=== PATIENT | male | born 1935 | race Caucasian/White ===

== ENCOUNTER 2017-06-28 10:22 | Outpatient (CLI) | payer MEDICARE, OTHER ==
--- NOTE | 2017-06-28 13:32 | CT ---
LOW DOSE CT PULMONARY LUNG SCAN: 06/28/2017 HISTORY: Lung cancer screening. Nicotine dependent. Cigarettes. Uncomplicated. The patient smoked at least a pack a day for 50 years. COMPARISON: None available. FINDINGS: There are two ill defined patchy densities seen within the right lower lobe, which measure less than 1 cm. there is no discrete solid pulmonary nodule or mass identified. There is no pleural effusion seen. Mild emphysematous changes are seen in the upper lobes, greater on the right. There is linear scarri ng versus atelectasis present at the left lung base. Vascular calcifications are seen in the coronary arteries, as well as involving the thoracic and visu alized upper abdominal aorta. There is limited evaluation of the mediastinal structures due to lack of intravenous contrast, but no enlarged lymph nodes are seen. Post cholecystectomy changes are seen in the visualized upper abdomen. Degenerative changes are noted in the spine. IMPRESSION: 1. Lung-RADS category 3, probably benign findings, with patchy and slight subtle ground glass densit y seen within the right lower lobe. Findings could be related to an infectious or inflammatory proce ss. A six-month follow-up low-dose CT scan thorax is recommended. 2. Lung-RADS category S--Mild emphysematous changes within the upper lobes, with linear scarring kang jeremiah atelectasis at the left lung base. 3. Lung-RADS category S-Prominent atherosclerotic vascular calcifications in the coronary arteries, as well as involving the thoracic and visualized upper abdominal aorta. POS: [facility]
== END 2017-06-28 10:23 | disposition home or self-care (01) ==
LOC: CT 10:22
PROVIDERS: ATTEND Family Medicine
DX: F17.210 Nicotine dependence, cigarettes, uncomplicated (principal); J98.4 Other disorders of lung; I25.10 Atherosclerotic heart disease of native coronary artery without angina pectoris; G95.19 Other vascular myelopathies; I70.0 Atherosclerosis of aorta
CPT/HCPCS: G0297

== ENCOUNTER 2018-05-20 12:33 | Emergency (ER) | payer MEDICARE, OTHER ==
[2018-05-20] MEDS ORDERED: Morphine 4 MG/ML Carpuject ONE (12:50)
--- NOTE | 2018-05-20 13:15 | RAD ---
2 VIEWS CHEST: Date: 05/20/18 COMPARISON: None. HISTORY: Fall with left posterior rib pain. FINDINGS: Two views of the chest show normal sized cardiomediastinal silhouette. There is no evidence of consol idation, mass, or pleural effusion. There are multiple abnormally shaped left lateral ribs, but these appear to be remote rib fractures rather than an acute fracture. No pneumothorax is seen. Degenerati ve changes are seen in the spine. Postsurgical changes are seen in both shoulders. IMPRESSION: No evidence of acute cardiopulmonary disease. POS: [facility]
== END 2018-05-20 13:25 | disposition home or self-care (01) ==
LOC: SCSER 12:33
DX: S20.222A Contusion of left back wall of thorax, initial encounter (principal); F17.210 Nicotine dependence, cigarettes, uncomplicated; I10 Essential (primary) hypertension; W01.198A Fall on same level from slipping, tripping and stumbling with subsequent striking against other object, initial encounter
CPT/HCPCS: 71046; 96372; J2270

== ENCOUNTER 2018-06-08 15:46 | Outpatient (CLI) | payer MEDICARE, OTHER ==
--- NOTE | 2018-06-08 17:07 | RAD ---
LEFT RIBS GREATER THAN OR EQUAL TO TWO VIEWS STANDARD 06/08/18 HISTORY: R07.81 - rib pain. Fall. COMPARISON: Chest radiograph 05/20/18. FINDINGS: Multiple remote left sided rib fractures. No pneumothorax. No effusion. No new acute superimposed rib fracture. IMPRESSION: Remote old left sided rib fractures. POS: [facility]
== END 2018-06-08 15:47 | disposition home or self-care (01) ==
LOC: SCSRAD 15:46
PROVIDERS: ATTEND Family Medicine
DX: R07.81 Pleurodynia (principal)

== ENCOUNTER 2021-10-01 08:02 | Outpatient (CLI) | payer MEDICARE, OTHER | END 2021-10-01 08:03 | disposition home or self-care (01) | LOC: NM 08:02 | PROVIDERS: ATTEND Family Medicine | DX: R74.8 Abnormal levels of other serum enzymes (principal) | CPT/HCPCS: 78306; A9503 ==

== ENCOUNTER 2021-10-20 08:30 | Day surgery (SDC) | payer MEDICARE, OTHER ==
[2021-10-20] MEDS ORDERED: Lidocaine 1% MPF 2 ML VIAL ONE (09:06)
[2021-10-20] MEDS ORDERED: Levofloxacin 500 mg/D5W 100 ml Premix Bag ONE (09:56)
[2021-10-20] MEDS ORDERED: Iopamidol 30 ML ONE (09:58)
[2021-10-20] MEDS ORDERED: Indomethacin 50 MG SUPP ONE (09:58)
[2021-10-20] MEDS ORDERED: Fentanyl 100 MCG/2 ML VIAL ONE (10:09)
[2021-10-20] MEDS ORDERED: Rocuronium Bromide 10 MG/ML (10ML VIAL) ONE (10:21)
[2021-10-20] MEDS ORDERED: Ondansetron PF 4 MG/2 ML Vial ONE (10:21)
[2021-10-20] MEDS ORDERED: Dexamethasone 20 MG/5 ML VIAL ONE (10:21)
[2021-10-20] MEDS ORDERED: PROPOFOL 200 MG/20 ML VIAL ONE (10:21)
[2021-10-20] MEDS ORDERED: Lidocaine 1% PF 5 ML VIAL ONE (10:21)
[2021-10-20] MEDS ORDERED: Glycopyrrolate 0.2 MG/ML 5 ML SYRINGE ONE (10:21)
== END 2021-10-20 14:38 | disposition home or self-care (01) ==
LOC: SDC 08:30
PROVIDERS: ATTEND Internal Medicine Gastroenterology
PROC: 0FC98ZZ Extirpation of Matter from Common Bile Duct, Via Natural or Artificial Opening Endoscopic (ICD-10-PCS; principal; 2021-10-20)
PROC: 0F798ZZ Dilation of Common Bile Duct, Via Natural or Artificial Opening Endoscopic (ICD-10-PCS; 2021-10-20)
DX: K80.50 Calculus of bile duct without cholangitis or cholecystitis without obstruction (principal); K57.10 Diverticulosis of small intestine without perforation or abscess without bleeding; F17.210 Nicotine dependence, cigarettes, uncomplicated; Z79.899 Other long term (current) drug therapy; Z20.822 Contact with and (suspected) exposure to COVID-19
CPT/HCPCS: 74330; 87811; J1100; J1956; J2405; J2704; J2710; J3010; Q9967

== ENCOUNTER 2021-12-27 23:21 | Inpatient (IN) | payer MEDICARE, OTHER ==
[2021-12-27] MEDS ORDERED: Morphine 4 MG/ML VIAL ONE (23:36)
[2021-12-28] MEDS ORDERED: Lorazepam 1 MG TAB PO PRN
[2021-12-28 00:11] LABS: #Eosinphils 0.1 thou/uL (0.0-0.7); #Lymphocytes 1.5 thou/uL (1.20-3.40); #Monocytes 0.7 thou/uL (0.11-0.59); #Neutrophils 7.3 thou/uL (1.40-6.50); %Basophils 0.1 % (0.0-1.0); %Eosinophils 0.6 % (0.0-10.0); %Lymphocytes 16.1 % (21.0-51.0); %Monocytes 7.4 % (0.0-10.0); %Neutrophils 75.9 % (42.0-75.0); Hemoglobin 12.5 g/dL (14.0-18.0); Mean Corpuscular HGB CONC 32.4 g/dL (32.0-36.0); Mean Corpuscular Hemoglobin 30.5 pg (27.0-31.0); Mean Corpuscular Volume 93.9 fL (78.0-98.0); Mean Platelet Volume 8.5 fL (7.4-10.4); Platelet Count 149 thou/uL (130-400); RBC Distribution Width 13.7 % (11.5-14.5); Red Blood Cell (RBC) Count 4.11 mill/uL (4.70-6.10); White Blood Cell (WBC) Count 9.6 thou/uL (4.8-10.8)
[2021-12-28 00:20] LABS: ALT (SGPT) 18 U/L (8-55); AST (SGOT) 18 U/L (5-34); Albumin 3.6 g/dL (3.4-4.8); Alkaline Phosphatase 165 U/L (40-110); Anion Gap 14 mmol/L (10-20); BUN (Urea Nitrogen) 17 mg/dL (8.4-25.7); Bilirubin, Total 0.4 mg/dL (0.2-1.2); Calc. Creatinine Clearance 0 mL/min (70-130); Carbon Dioxide 22 mmol/L (23-31); Chloride 109 mmol/L (98-107); Estimated GFR 82; Globulin 2.4 g/dL (2.4-3.5); Glucose 101 mg/dL (83-110); Potassium 3.6 mmol/L (3.5-5.1); Sodium 141 mmol/L (136-145)
[2021-12-28] MEDS ORDERED: Ondansetron PF 4 MG/2 ML Vial IVP PRN (01:50)
[2021-12-28] MEDS ORDERED: Acetaminophen 325 MG TAB PO PRN (01:50)
[2021-12-28] MEDS ORDERED: Ondansetron ODT 4 MG TAB PO PRN ×2 (01:50→03:45)
[2021-12-28] MEDS ORDERED: Acetaminophen 650 MG Suppository PR PRN (01:50)
[2021-12-28 02:52] VITALS: BMI 25.4
[2021-12-28] MEDS: Morphine 4 MG/ML VIAL SLOW IVP PRN ×2 (03:40→14:33)
[2021-12-28] MEDS ORDERED: Thiamine HCl 200 MG/2 ML VIAL SLOW IVP SCH (03:45)
[2021-12-28] MEDS ORDERED: Lorazepam 2 MG/ML VIAL IM PRN (03:45)
[2021-12-28] MEDS ORDERED: Electrolyte Replacement Protocol 1 EACH FS PRN (03:45)
[2021-12-28] MEDS: Enoxaparin Sodium 80 MG/0.8 ML SYRINGE SC SCH ×2 (03:55→18:02)
[2021-12-28 05:16] LABS: #Lymphocytes 1.3 thou/uL (1.20-3.40); #Monocytes 0.6 thou/uL (0.11-0.59); %Basophils 0.3 % (0.0-1.0); %Eosinophils 0.7 % (0.0-10.0); %Lymphocytes 18.9 % (21.0-51.0); %Monocytes 8.9 % (0.0-10.0); %Neutrophils 71.2 % (42.0-75.0); Hemoglobin 12.3 g/dL (14.0-18.0); Mean Corpuscular Hemoglobin 30.7 pg (27.0-31.0); Mean Platelet Volume 8.3 fL (7.4-10.4); Platelet Count 138 thou/uL (130-400); RBC Distribution Width 13.7 % (11.5-14.5); Red Blood Cell (RBC) Count 3.99 mill/uL (4.70-6.10); White Blood Cell (WBC) Count 7.1 thou/uL (4.8-10.8)
[2021-12-28 05:36] LABS: Anion Gap 11 mmol/L (10-20); BUN (Urea Nitrogen) 14 mg/dL (8.4-25.7); Calc. Creatinine Clearance 70 mL/min (70-130); Calcium 8.1 mg/dL (7.8-10.44); Carbon Dioxide 23 mmol/L (23-31); Chloride 109 mmol/L (98-107); Estimated GFR 87; Glucose 112 mg/dL (83-110); Potassium 3.7 mmol/L (3.5-5.1); Sodium 139 mmol/L (136-145)
[2021-12-28] MEDS ORDERED: Lorazepam 1 MG TAB PO SCH (06:00)
[2021-12-28] MEDS ORDERED: Enoxaparin Sodium 40 MG/0.4 ML SYRINGE SC SCH (09:00)
[2021-12-28] MEDS ORDERED: Multivit, Therapeutic 1 TAB PO SCH (09:00)
[2021-12-28] MEDS ORDERED: Folic Acid 1 MG TAB PO SCH (09:00)
[2021-12-28] MEDS ORDERED: Magnesium 2 GM/50 ML(in water) 2 GM in Premix Bag 1 BAG IVPB SCH (09:00)
[2021-12-28] MEDS: Multivitamins, Adult 10 ML, Folic Acid 1 MG, Thiamine HCl 100 MG in Dextrose 5 %-0.45 %... IV SCH (09:22)
[2021-12-28] MEDS: Finasteride 5 MG TAB PO SCH (09:25)
[2021-12-28] MEDS: Amlodipine 5 MG TAB PO SCH (09:25)
[2021-12-28] MEDS: Dronedarone HCl 400 MG TAB PO SCH (18:02)
[2021-12-28] MEDS ORDERED: Aspirin 81 mg Enteric Coated Tablet PO SCH (21:00)
[2021-12-29] MEDS ORDERED: Lorazepam 1 MG TAB PO PRN (03:45)
[2021-12-29] MEDS: HYDROcodone/Acetaminophen 5/325 mg Tablet PO PRN ×2 (05:26→17:13)
[2021-12-29] MEDS: Lorazepam 1 MG TAB PO SCH ×4 (05:27→23:31)
[2021-12-29 07:17] LABS: Anion Gap 11 mmol/L (10-20); BUN (Urea Nitrogen) 16 mg/dL (8.4-25.7); Calc. Creatinine Clearance 62 mL/min (70-130); Calcium 8.1 mg/dL (7.8-10.44); Carbon Dioxide 22 mmol/L (23-31); Chloride 107 mmol/L (98-107); Estimated GFR 84; Glucose 135 mg/dL (83-110); Magnesium 2.1 mg/dL (1.6-2.6); Potassium 3.7 mmol/L (3.5-5.1); Sodium 136 mmol/L (136-145)
[2021-12-29 07:24] LABS: #Monocytes 0.9 thou/uL (0.11-0.59); #Neutrophils 6.4 thou/uL (1.40-6.50); %Basophils 0.1 % (0.0-1.0); %Eosinophils 0.3 % (0.0-10.0); %Lymphocytes 12.1 % (21.0-51.0); %Monocytes 10.6 % (0.0-10.0); %Neutrophils 76.9 % (42.0-75.0); Hemoglobin 12.3 g/dL (14.0-18.0); Large Platelets SLIGHT; MDiff Complete? YES; Mean Corpuscular HGB CONC 33.8 g/dL (32.0-36.0); Mean Corpuscular Hemoglobin 31.4 pg (27.0-31.0); Mean Corpuscular Volume 92.8 fL (78.0-98.0); Mean Platelet Volume 8.1 fL (7.4-10.4); Platelet Count 118 thou/uL (130-400); Platelet Morphology Comment Appears Decreased; RBC Distribution Width 13.6 % (11.5-14.5); RBC Morphology Normal; Red Blood Cell (RBC) Count 3.93 mill/uL (4.70-6.10); White Blood Cell (WBC) Count 8.3 thou/uL (4.8-10.8)
[2021-12-29] MEDS: Dronedarone HCl 400 MG TAB PO SCH ×2 (09:49→17:13)
[2021-12-29] MEDS: Enoxaparin Sodium 80 MG/0.8 ML SYRINGE SC SCH ×2 (09:49→20:10)
[2021-12-29] MEDS: Finasteride 5 MG TAB PO SCH (09:49)
[2021-12-29] MEDS: Amlodipine 5 MG TAB PO SCH (09:49)
[2021-12-29] MEDS: Multivitamins, Adult 10 ML, Folic Acid 1 MG, Thiamine HCl 100 MG in Dextrose 5 %-0.45 %... IV SCH (09:50)
[2021-12-29] MEDS ORDERED: Aspirin 81 mg Enteric Coated Tablet PO SCH (10:09)
[2021-12-29] MEDS: GLUCOSAMINE CHONDROITIN MSM PO SCH (13:59)
[2021-12-29] MEDS ORDERED: Dronedarone HCl 400 MG TAB PO SCH (17:00)
[2021-12-29] MEDS ORDERED: Aspirin 325 mg Enteric Coated Tablet PO SCH (21:00)
[2021-12-30] MEDS ORDERED: Lorazepam 1 MG TAB PO PRN (03:45)
[2021-12-30] MEDS: Lorazepam 0.5 MG TAB PO SCH ×2 (05:24→13:53)
[2021-12-30] MEDS: Dronedarone HCl 400 MG TAB PO SCH (08:36)
[2021-12-30] MEDS: Finasteride 5 MG TAB PO SCH (08:37)
[2021-12-30] MEDS: Amlodipine 5 MG TAB PO SCH (08:37)
[2021-12-30] MEDS: Multivitamins, Adult 10 ML, Folic Acid 1 MG, Thiamine HCl 100 MG in Dextrose 5 %-0.45 %... IV SCH (08:37)
[2021-12-30] MEDS: Enoxaparin Sodium 80 MG/0.8 ML SYRINGE SC SCH (08:37)
[2021-12-30 13:01] VITALS: BP 127/78; TEMP 98.1
[2021-12-30] MEDS: GLUCOSAMINE CHONDROITIN MSM PO SCH (13:54)
[2021-12-31] MEDS ORDERED: Lorazepam 0.5 MG TAB PO PRN (06:00)
[2021-12-31] MEDS ORDERED: Thiamine 100 MG TAB PO SCH (09:00)
== END 2021-12-30 17:20 | DRG 308 ==
LOC: ERS 23:21 → 2SW 12-28 01:01
PROVIDERS: ADMIT Student in an Organized Health Care Education/Training Program; ATTEND Hospitalist
PROC: 8E0ZXY6 Isolation (ICD-10-PCS; principal; 2021-12-28)
DX: I48.0 Paroxysmal atrial fibrillation (principal); U07.1 COVID-19; S32.512A Fracture of superior rim of left pubis, initial encounter for closed fracture; I10 Essential (primary) hypertension; F17.210 Nicotine dependence, cigarettes, uncomplicated; Z60.2 Problems related to living alone; D64.9 Anemia, unspecified; I25.10 Atherosclerotic heart disease of native coronary artery without angina pectoris; I73.9 Peripheral vascular disease, unspecified; W01.0XXA Fall on same level from slipping, tripping and stumbling without subsequent striking against object, initial encounter; E78.5 Hyperlipidemia, unspecified; F10.10 Alcohol abuse, uncomplicated; Y93.01 Activity, walking, marching and hiking; Y92.009 Unspecified place in unspecified non-institutional (private) residence as the place of occurrence of the external cause; Z79.82 Long term (current) use of aspirin; Z79.899 Other long term (current) drug therapy; Z90.49 Acquired absence of other specified parts of digestive tract
CPT/HCPCS: 36415; 71045; 80048; 80053; 83735; 84484; 85025; 93005; 93306; 96374; J1650; J2270; J3411; J3475; J7042; U0003; U0005

== ENCOUNTER 2022-02-18 14:37 | Outpatient (CLI) | payer MEDICARE, OTHER | END 2022-02-18 14:38 | disposition home or self-care (01) | LOC: SCSRAD 14:37 | PROVIDERS: ATTEND Family Medicine | DX: S32.592D Other specified fracture of left pubis, subsequent encounter for fracture with routine healing (principal); S32.402D Unspecified fracture of left acetabulum, subsequent encounter for fracture with routine healing ==

== ENCOUNTER 2022-04-01 09:29 | Outpatient (CLI) | payer MEDICARE, OTHER | END 2022-04-01 09:30 | disposition home or self-care (01) | LOC: SCSCT 09:29 | PROVIDERS: ATTEND Family Medicine | DX: S32.599D Other specified fracture of unspecified pubis, subsequent encounter for fracture with routine healing (principal); N32.89 Other specified disorders of bladder | CPT/HCPCS: 72192 ==

== ENCOUNTER 2022-06-03 14:33 | Outpatient (CLI) | payer MEDICARE, OTHER | END 2022-06-03 14:34 | disposition home or self-care (01) | LOC: SCSMRI 14:33 | PROVIDERS: ATTEND Specialist | DX: M51.16 Intervertebral disc disorders with radiculopathy, lumbar region (principal); M47.26 Other spondylosis with radiculopathy, lumbar region; M25.78 Osteophyte, vertebrae; M48.061 Spinal stenosis, lumbar region without neurogenic claudication | CPT/HCPCS: 72148 ==

== ENCOUNTER 2023-02-17 11:31 | Outpatient (CLI) | payer MEDICARE, OTHER | END 2023-02-17 11:32 | disposition home or self-care (01) | LOC: SCSRAD 11:31 | PROVIDERS: ATTEND Family Medicine | DX: J44.9 Chronic obstructive pulmonary disease, unspecified (principal); R91.8 Other nonspecific abnormal finding of lung field; J90 Pleural effusion, not elsewhere classified | CPT/HCPCS: 36415; 71046; 80053; 81001; 84443; 85025 ==

== ENCOUNTER 2023-03-01 06:59 | Day surgery (SDC) | payer MEDICARE, OTHER ==
[2023-02-24 08:34] VITALS: BMI 21.9
[2023-03-01] MEDS ORDERED: PROPOFOL 40 ML ONE ×2 (07:36→09:54)
[2023-03-01] MEDS ORDERED: Lidocaine 2% PF 5 ML VIAL ONE (07:36)
[2023-03-01] MEDS ORDERED: Dexamethasone 4 mg/ml Vial ONE ×3 (07:36→09:54)
[2023-03-01] MEDS ORDERED: Ondansetron PF 4 MG/2 ML Vial ONE ×3 (07:36→09:55)
[2023-03-01] MEDS ORDERED: fentaNYL 50 mcg/mL 1 mL Vial ONE (07:36)
[2023-03-01] MEDS ORDERED: Lidocaine 1% PF 5 ML VIAL ONE ×2 (07:36→09:53)
[2023-03-01] MEDS ORDERED: Rocuronium Bromide 10 MG/ML (10ML VIAL) ONE ×2 (07:36→09:53)
[2023-03-01] MEDS ORDERED: Lidocaine 4% PF 5 ML AMP ONE (08:09)
[2023-03-01] MEDS ORDERED: Ipratropium/Albuterol 3 ML NEB ONE (08:09)
[2023-03-01] MEDS ORDERED: SUGAMMADEX SODIUM 200 MG/2 ML VIAL ONE (09:54)
[2023-03-01] MEDS ORDERED: PROPOFOL 200 MG/20 ML VIAL ONE (09:55)
[2023-03-01] MEDS ORDERED: Dexamethasone 20 MG/5 ML VIAL ONE (09:55)
== END 2023-03-01 12:20 | disposition home or self-care (01) ==
LOC: SDC 06:59
PROVIDERS: ATTEND Internal Medicine Critical Care Medicine
PROC: 0BBB8ZX Excision of Left Lower Lobe Bronchus, Via Natural or Artificial Opening Endoscopic, Diagnostic (ICD-10-PCS; principal; 2023-03-01)
DX: C34.32 Malignant neoplasm of lower lobe, left bronchus or lung (principal); I10 Essential (primary) hypertension; E78.00 Pure hypercholesterolemia, unspecified; Z98.890 Other specified postprocedural states; J18.9 Pneumonia, unspecified organism; Z79.899 Other long term (current) drug therapy; Z79.82 Long term (current) use of aspirin; F17.210 Nicotine dependence, cigarettes, uncomplicated
CPT/HCPCS: 31625; 93005; J3010; 88112; 88305; 88341; 88342; 93010; J1100; J2001; J2405; J2704; J7620

== ENCOUNTER 2023-03-05 20:05 | Inpatient (IN) | payer MEDICARE, OTHER ==
[2023-03-05 20:39] LABS: #Eosinphils 0.1 thou/uL (0.0-0.7); #Monocytes 0.9 thou/uL (0.11-0.59); %Basophils 0.3 % (0.0-1.0); %Eosinophils 0.4 % (0.0-10.0); %Lymphocytes 7.2 % (21.0-51.0); %Monocytes 6.6 % (0.0-10.0); %Neutrophils 84.8 % (42.0-75.0); Hemoglobin 11.3 g/dL (14.0-18.0); Mean Corpuscular HGB CONC 31.4 g/dL (32.0-36.0); Mean Corpuscular Volume 89.1 fl (78.0-98.0); Mean Platelet Volume 10.1 fL (7.4-10.4); Platelet Count 283 10x3/uL (130-400); RBC Distribution Width 14.2 % (11.5-14.5); Red Blood Cell (RBC) Count 4.04 mill/uL (4.70-6.10); White Blood Cell (WBC) Count 14.1 10x3/uL (4.8-10.8)
[2023-03-05 21:03] LABS: ALT (SGPT) 23 U/L (8-55); AST (SGOT) 21 U/L (5-34); Albumin 2.6 g/dL (3.4-4.8); Alkaline Phosphatase 202 U/L (40-110); Anion Gap 15 mmol/L (10-20); BUN (Urea Nitrogen) 21 mg/dL (8.4-25.7); Bilirubin, Total 0.7 mg/dL (0.2-1.2); Calc. Creatinine Clearance 0 mL/min (70-130); Calcium 7.6 mg/dL (7.8-10.44); Carbon Dioxide 20 mmol/L (23-31); Chloride 110 mmol/L (98-107); Estimated GFR 74; Globulin 2.4 g/dL (2.4-3.5); Glucose 208 mg/dL (83-110); Potassium 3.7 mmol/L (3.5-5.1); Sodium 141 mmol/L (136-145)
[2023-03-05 21:05] LABS: Troponin I 0.016 ng/mL (< 0.028)
[2023-03-05] MEDS ORDERED: Cefepime 2 GM VIAL ONE (21:57)
[2023-03-05] MEDS ORDERED: Sodium Chloride 0.9% 100 ML ONE (21:58)
[2023-03-05] MEDS ORDERED: Albuterol 200 PUFF (6.7GM INHALER) INH PRN (22:53)
[2023-03-05] MEDS ORDERED: Ondansetron PF 4 MG/2 ML Vial IVP PRN (22:55)
[2023-03-05] MEDS ORDERED: Acetaminophen 325 MG TAB PO PRN (22:55)
[2023-03-05 23:58] LABS: Troponin I 0.023 ng/mL (< 0.028)
[2023-03-06 01:07] VITALS: BMI 20.1
[2023-03-06 01:51] LABS: Lactic Acid 1.6 mmol/L (0.5-2.2)
[2023-03-06 04:58] LABS: #Eosinphils 0.1 thou/uL (0.0-0.7); #Neutrophils 11.1 thou/uL (1.40-6.50); %Basophils 0.1 % (0.0-1.0); %Eosinophils 0.4 % (0.0-10.0); %Lymphocytes 10.4 % (21.0-51.0); %Monocytes 7.2 % (0.0-10.0); %Neutrophils 81.3 % (42.0-75.0); Hematocrit 32.9 % (42.0-52.0); Hemoglobin 10.7 g/dL (14.0-18.0); Mean Corpuscular HGB CONC 32.5 g/dL (32.0-36.0); Mean Corpuscular Hemoglobin 28.5 pg (27.0-31.0); Mean Corpuscular Volume 87.5 fl (78.0-98.0); Mean Platelet Volume 9.9 fL (7.4-10.4); Platelet Count 253 10x3/uL (130-400); RBC Distribution Width 14.3 % (11.5-14.5); Red Blood Cell (RBC) Count 3.76 mill/uL (4.70-6.10); White Blood Cell (WBC) Count 13.6 10x3/uL (4.8-10.8)
[2023-03-06 05:10] LABS: Anion Gap 11 mmol/L (10-20); BUN (Urea Nitrogen) 21 mg/dL (8.4-25.7); Calc. Creatinine Clearance 50 mL/min (70-130); Calcium 7.8 mg/dL (7.8-10.44); Carbon Dioxide 23 mmol/L (23-31); Chloride 110 mmol/L (98-107); Estimated GFR 85; Glucose 117 mg/dL (83-110); Potassium 3.3 mmol/L (3.5-5.1); Sodium 141 mmol/L (136-145)
[2023-03-06 05:36] LABS: Troponin I 0.061 ng/mL (< 0.028)
[2023-03-06] MEDS: Dronedarone HCl 400 MG TAB PO SCH ×2 (08:45→17:00)
[2023-03-06] MEDS: Heparin 5,000 UNITS/ML VIAL SC SCH ×3 (08:45→20:40)
[2023-03-06] MEDS: Finasteride 5 MG TAB PO SCH (08:45)
[2023-03-06] MEDS ORDERED: Digoxin 0.5 MG/2 ML AMP SLOW IVP SCH (14:45)
[2023-03-06] MEDS: Ipratropium/Albuterol 3 ML NEB NEB SCH ×2 (17:57→18:18)
[2023-03-06] MEDS ORDERED: dilTIAZem 125 MG in Sodium Chloride 0.9% 100 ML IVPB SCH (18:45)
[2023-03-06] MEDS: dilTIAZem 125 MG, Admixture Fee 1 EACH in Sodium Chloride 0.9% 100 ML IVPB SCH (19:03)
[2023-03-06] MEDS ORDERED: Potassium Chloride 20 MEQ TAB PO SCH (20:00)
[2023-03-06] MEDS: Aspirin 81 mg Enteric Coated Tablet PO SCH (20:39)
[2023-03-06] MEDS: Atorvastatin Calcium 20 MG TAB PO SCH (20:40)
[2023-03-06] MEDS ORDERED: Simvastatin 5 MG TAB PO SCH (21:00)
[2023-03-07 05:55] LABS: #Monocytes 0.9 thou/uL (0.11-0.59); #Neutrophils 9.8 thou/uL (1.40-6.50); %Basophils 0.2 % (0.0-1.0); %Eosinophils 0.3 % (0.0-10.0); %Monocytes 7.6 % (0.0-10.0); %Neutrophils 83.4 % (42.0-75.0); Hematocrit 34.5 % (42.0-52.0); Hemoglobin 11.2 g/dL (14.0-18.0); Mean Corpuscular HGB CONC 32.5 g/dL (32.0-36.0); Mean Corpuscular Hemoglobin 28.2 pg (27.0-31.0); Mean Corpuscular Volume 86.9 fl (78.0-98.0); Mean Platelet Volume 10.5 fL (7.4-10.4); Platelet Count 256 10x3/uL (130-400); RBC Distribution Width 14.4 % (11.5-14.5); Red Blood Cell (RBC) Count 3.97 mill/uL (4.70-6.10); White Blood Cell (WBC) Count 11.8 10x3/uL (4.8-10.8)
[2023-03-07 06:28] LABS: Anion Gap 13 mmol/L (10-20); BUN (Urea Nitrogen) 15 mg/dL (8.4-25.7); Calc. Creatinine Clearance 55 mL/min (70-130); Calcium 7.5 mg/dL (7.8-10.44); Carbon Dioxide 21 mmol/L (23-31); Chloride 111 mmol/L (98-107); Estimated GFR 87; Glucose 95 mg/dL (83-110); Magnesium 1.7 mg/dL (1.6-2.6); Potassium 3.7 mmol/L (3.5-5.1); Sodium 141 mmol/L (136-145)
[2023-03-07] MEDS: dilTIAZem 125 MG, Admixture Fee 1 EACH in Sodium Chloride 0.9% 100 ML IVPB SCH ×2 (06:33→17:10)
[2023-03-07] MEDS: Ipratropium/Albuterol 3 ML NEB NEB SCH ×4 (06:49→18:29)
[2023-03-07] MEDS: Dronedarone HCl 400 MG TAB PO SCH ×2 (09:08→16:40)
[2023-03-07] MEDS: Amlodipine 5 MG TAB PO SCH (09:08)
[2023-03-07] MEDS: Finasteride 5 MG TAB PO SCH (09:08)
[2023-03-07] MEDS: Heparin 5,000 UNITS/ML VIAL SC SCH ×3 (09:08→21:07)
[2023-03-07] MEDS: Nicotine 21 MG PATCH TD SCH (12:05)
[2023-03-07] MEDS ORDERED: predniSONE 20 MG TAB PO SCH (15:00)
[2023-03-07] MEDS: Mometasone 200 MCG/Formoterol 5 MCG 120 PUFF INHALER INH SCH (18:39)
[2023-03-07] MEDS ORDERED: methylPREDNISolone Sod Succ 40 MG VIAL IVP SCH (20:15)
[2023-03-07] MEDS ORDERED: Magnesium 2 GM/50 ML(in water) 2 GM in Premix 1 BAG IVPB SCH (20:15)
[2023-03-07] MEDS: Aspirin 81 mg Enteric Coated Tablet PO SCH (21:05)
[2023-03-07] MEDS ORDERED: Lidocaine 1% PF 5 ML VIAL FS SCH (21:45)
[2023-03-07] MEDS ORDERED: Lidocaine 1% (PF) 30 ML VIAL FS SCH (22:00)
[2023-03-07] MEDS: Atorvastatin Calcium 20 MG TAB PO SCH (22:41)
[2023-03-07] MEDS ORDERED: traMADol HCl 50 MG TAB PO PRN ×2 (22:45→22:56)
[2023-03-07] MEDS ORDERED: fentaNYL 50 mcg/mL 1 mL Vial SLOW IVP PRN (22:45)
[2023-03-07 22:59] LABS: INR-International Normal Ratio 1.2; Prothrombin Time 15.9 sec (12.0-14.7)
[2023-03-07 23:58] LABS: Pleural Fluid, Glucose 177 mg/dL; Pleural Fluid, LDH 282 U/L (Not Available)
[2023-03-08 00:08] LABS: Pleural Fluid, Protein 2.4 g/dL
[2023-03-08] MEDS: dilTIAZem 125 MG, Admixture Fee 1 EACH in Sodium Chloride 0.9% 100 ML IVPB SCH ×2 (00:41→09:46)
[2023-03-08 04:04] LABS: #Monocytes 0.4 thou/uL (0.11-0.59); #Neutrophils 11.9 thou/uL (1.40-6.50); %Basophils 0.1 % (0.0-1.0); %Lymphocytes 3.7 % (21.0-51.0); %Monocytes 3.4 % (0.0-10.0); %Neutrophils 92.5 % (42.0-75.0); Hematocrit 36.4 % (42.0-52.0); Hemoglobin 11.7 g/dL (14.0-18.0); Mean Corpuscular HGB CONC 32.1 g/dL (32.0-36.0); Mean Corpuscular Hemoglobin 28.2 pg (27.0-31.0); Mean Corpuscular Volume 87.7 fl (78.0-98.0); Mean Platelet Volume 10.2 fL (7.4-10.4); Platelet Count 280 10x3/uL (130-400); RBC Distribution Width 14.4 % (11.5-14.5); Red Blood Cell (RBC) Count 4.15 mill/uL (4.70-6.10); White Blood Cell (WBC) Count 12.8 10x3/uL (4.8-10.8)
[2023-03-08] MEDS: Mometasone 200 MCG/Formoterol 5 MCG 120 PUFF INHALER INH SCH (07:00)
[2023-03-08] MEDS: Ipratropium/Albuterol 3 ML NEB NEB SCH ×3 (07:14→14:27)
[2023-03-08] MEDS ORDERED: Morphine 2 MG/ML VIAL SLOW IVP PRN (07:48)
[2023-03-08] MEDS ORDERED: predniSONE 20 MG TAB PO SCH (08:00)
[2023-03-08] MEDS ORDERED: Hydrocortisone Sod Succ/PF 100 mg/2 ml Vial IVP SCH ×2 (08:00→16:00)
[2023-03-08] MEDS: Dronedarone HCl 400 MG TAB PO SCH (08:07)
[2023-03-08] MEDS: Amlodipine 5 MG TAB PO SCH (09:48)
[2023-03-08] MEDS: Finasteride 5 MG TAB PO SCH (09:48)
[2023-03-08 11:48] VITALS: BP 101/54; TEMP 97.3
[2023-03-08] MEDS ORDERED: dilTIAZem 125 MG, Admixture Fee 1 EACH in Sodium Chloride 0.9% 100 ML IVPB SCH (12:30)
[2023-03-08] MEDS: Nicotine 21 MG PATCH TD SCH (12:59)
[2023-03-08] MEDS: Heparin 5,000 UNITS/ML VIAL SC SCH (13:00)
== END 2023-03-08 16:26 | disposition hospice, inpatient (51) | DRG 186 ==
LOC: ERS 20:05 → 2NO 22:49 → OBSVTOIN 03-06 14:31
PROVIDERS: ADMIT Student in an Organized Health Care Education/Training Program; ATTEND Internal Medicine
PROC: 0W9B30Z Drainage of Left Pleural Cavity with Drainage Device, Percutaneous Approach (ICD-10-PCS; principal; 2023-03-07)
DX: J90 Pleural effusion, not elsewhere classified (principal); J96.01 Acute respiratory failure with hypoxia; C34.90 Malignant neoplasm of unspecified part of unspecified bronchus or lung; E87.20 Acidosis, unspecified; C78.7 Secondary malignant neoplasm of liver and intrahepatic bile duct; J94.8 Other specified pleural conditions; Z51.5 Encounter for palliative care; Z66 Do not resuscitate; J44.9 Chronic obstructive pulmonary disease, unspecified; I95.9 Hypotension, unspecified; S32.599D Other specified fracture of unspecified pubis, subsequent encounter for fracture with routine healing; F17.210 Nicotine dependence, cigarettes, uncomplicated; I10 Essential (primary) hypertension; W19.XXXD Unspecified fall, subsequent encounter; F10.90 Alcohol use, unspecified, uncomplicated; D72.829 Elevated white blood cell count, unspecified; Z71.6 Tobacco abuse counseling; I48.0 Paroxysmal atrial fibrillation; Z79.899 Other long term (current) drug therapy; Z79.82 Long term (current) use of aspirin; Z90.49 Acquired absence of other specified parts of digestive tract; Z98.890 Other specified postprocedural states
CPT/HCPCS: 36415; 71045; 71250; 80048; 80053; 82150; 82945; 83605; 83615; 83735; 83880; 83986; 84157; 84484; 85025; 85610; 87040; 87070; 87205; 88112; 88305; 88341; 88342; 92960; 93005; 93306; 94640; 96360; 96361; 96372; G0378; J0692; J1160; J1644; J1720; J2001; J2920; J3490; J7512; J7620

== ENCOUNTER 2023-03-08 16:37 | Inpatient (IN) | payer OTHER ==
[2023-03-08] MEDS: Morphine 2 MG/ML VIAL SLOW IVP PRN ×5 (17:39→22:33)
[2023-03-08] MEDS: Lorazepam 2 MG/ML VIAL SLOW IVP PRN ×2 (19:17→23:20)
[2023-03-08] MEDS: Hyoscyamine SL 0.125 MG TAB SL SCH ×4 (20:31→23:16)
[2023-03-09] MEDS: Morphine 2 MG/ML VIAL SLOW IVP PRN ×4 (00:49→12:21)
[2023-03-09] MEDS: Hyoscyamine SL 0.125 MG TAB SL SCH ×8 (02:18→09:09)
[2023-03-09] MEDS: Lorazepam 2 MG/ML VIAL SLOW IVP PRN ×4 (03:26→15:09)
[2023-03-09 07:49] VITALS: BP 93/45; TEMP 100.1
== END 2023-03-09 18:20 | disposition expired | DRG 951 ==
LOC: 2NO 16:37
PROVIDERS: ADMIT Family Medicine; ATTEND Family Medicine
DX: Z51.5 Encounter for palliative care (principal); J96.01 Acute respiratory failure with hypoxia; I47.10 Supraventricular tachycardia, unspecified; E87.20 Acidosis, unspecified; C34.90 Malignant neoplasm of unspecified part of unspecified bronchus or lung; J94.8 Other specified pleural conditions; I10 Essential (primary) hypertension; F17.210 Nicotine dependence, cigarettes, uncomplicated; J43.9 Emphysema, unspecified; I48.0 Paroxysmal atrial fibrillation; E78.5 Hyperlipidemia, unspecified; Z90.49 Acquired absence of other specified parts of digestive tract; Z98.890 Other specified postprocedural states
CPT/HCPCS: J2060; J2272